=== PATIENT | male | born 1960 | race Caucasian/White ===

== ENCOUNTER 2023-10-09 21:32 | Inpatient (IN) | payer MEDICARE ==
[~2023-10-09] VITALS: Ht 182.9 cm; Wt 73.9 kg
[2023-10-09 22:18] VITALS: BP 125/93; TEMP 98.2; O2SAT 100
[2023-10-09] MEDS ORDERED: MAG HYDROX/AL HYDROX/SIMETH 30 ML UDC PO PRN (22:30)
[2023-10-09] MEDS ORDERED: clonazePAM 0.5 MG TABLET PO PRN (22:30)
[2023-10-09] MEDS ORDERED: MAGNESIUM HYDROXIDE 30 ML UDC PO PRN (22:30)
[2023-10-09] MEDS ORDERED: ACETAMINOPHEN 325 MG TABLET PO PRN (22:30)
[2023-10-09] MEDS ORDERED: ESCI20TA PO (22:32)
[2023-10-09] MEDS ORDERED: QUET200T PO (22:33)
[2023-10-09] MEDS: BLOOD SUGAR DIAGNOSTIC 1 EACH STRIP IN ONE (22:59)
[2023-10-10 07:47] LABS: BASOPHILS # (AUTO) 0.1 K/uL (0.0-0.2); BASOPHILS % (AUTO) 0.8 % (0.0-2.0); EOSINOPHILS # (AUTO) 0.2 K/uL (0.0-0.7); EOSINOPHILS % (AUTO) 2.2 % (0.0-6.0); HEMATOCRIT 44 % (39-51); LYMPHOCYTES # (AUTO) 1.8 K/uL (0.8-4.8); LYMPHOCYTES % (AUTO) 25.8 % (20.0-44.0); MEAN CORPUSCULAR HEMOGLOBIN 33 PG (26.0-33.0); MEAN CORPUSCULAR HGB CONC 34 g/dl (31.0-36.0); MEAN CORPUSCULAR VOLUME 97 fL (80-96); MONOCYTES # (AUTO) 0.8 K/uL (0.1-1.30); MONOCYTES % (AUTO) 11.2 % (2.0-12.0); NEUTROPHILS # (AUTO) 4.2 K/uL (1.8-8.9); PLATELET COUNT (AUTO) 251 K/uL (150-450); RED BLOOD CELL COUNT(AUTO) 4.57 MIL/uL (4.5-6.0); RED CELL DISTRIBUTION WIDTH 13.8 % (11.5-15.0)
[2023-10-10 08:00] VITALS: BP 107/75; TEMP 98.1; O2SAT 100
[2023-10-10] MEDS: ENSURE ENLIVE CHOC 237 ML CAN PO SCH (08:00)
[2023-10-10] MEDS: FLUVOXAMINE MALEATE 50 MG TABLET PO SCH (08:00)
[2023-10-10 08:03] LABS: CALCIUM, SERUM 9.2 mg/dL (8.5-10.1); POTASSIUM 3.4 mmol/L (3.5-5.1)
[2023-10-10] MEDS: ESCITALOPRAM OXALATE (10 MG) 10 MG TABLET PO SCH (08:43)
[2023-10-10] MEDS: POTASSIUM CHLORIDE 20 MEQ TAB.PRT.SR PO ONE (09:30)
[2023-10-10 16:00] VITALS: BP 103/83; TEMP 97.8; O2SAT 99
[2023-10-10 20:00] VITALS: BP 128/91; TEMP 97.6; O2SAT 99
[2023-10-11 08:00] VITALS: BP 110/82; TEMP 98.5; O2SAT 100
[2023-10-11 16:00] VITALS: BP 96/81; TEMP 98; O2SAT 98
[2023-10-11 20:00] VITALS: BP 127/96; TEMP 98.5; O2SAT 98
[2023-10-11] MEDS: QUETIAPINE FUMARATE 100 MG TABLET PO SCH (21:49)
[2023-10-12 08:00] VITALS: BP 123/92; TEMP 97.7; O2SAT 100
[2023-10-12 16:00] VITALS: BP 112/80; TEMP 98.2; O2SAT 100
[2023-10-12 20:19] VITALS: BP 102/79; TEMP 98.2; O2SAT 100
[2023-10-12] MEDS: TEMAZEPAM 7.5 MG CAPSULE PO PRN (21:33)
[2023-10-13 08:00] VITALS: BP 100/80; TEMP 98.6; O2SAT 98
[2023-10-13 16:00] VITALS: BP 101/84; TEMP 97.9; O2SAT 98
[2023-10-13 20:29] VITALS: BP 110/75; TEMP 98.6; O2SAT 97
[2023-10-14 08:00] VITALS: BP 101/72; TEMP 98; O2SAT 96
[2023-10-14 16:06] VITALS: BP 106/64; TEMP 97.9; O2SAT 99
[2023-10-14 20:19] VITALS: BP 106/67; TEMP 97.9; O2SAT 100
[2023-10-15 08:00] VITALS: BP 109/65; TEMP 97.9; O2SAT 97
[2023-10-15 16:00] VITALS: BP 110/75; TEMP 98.1; O2SAT 98
[2023-10-15 20:22] VITALS: BP 117/84; TEMP 98.3; O2SAT 100
[2023-10-16 06:56] LABS: BASOPHILS % (AUTO) 0.5 % (0.0-2.0); EOSINOPHILS # (AUTO) 0.2 K/uL (0.0-0.7); EOSINOPHILS % (AUTO) 3.3 % (0.0-6.0); HEMATOCRIT 38 % (39-51); HEMOGLOBIN 13.3 g/dL (13.5-17.5); LYMPHOCYTES # (AUTO) 2.3 K/uL (0.8-4.8); LYMPHOCYTES % (AUTO) 36.2 % (20.0-44.0); MEAN CORPUSCULAR HEMOGLOBIN 33 PG (26.0-33.0); MEAN CORPUSCULAR HGB CONC 35 g/dl (31.0-36.0); MEAN CORPUSCULAR VOLUME 95 fL (80-96); MONOCYTES # (AUTO) 0.9 K/uL (0.1-1.30); MONOCYTES % (AUTO) 14.2 % (2.0-12.0); NEUTROPHILS # (AUTO) 2.9 K/uL (1.8-8.9); NEUTROPHILS % (AUTO) 45.8 % (43.0-81.0); PLATELET COUNT (AUTO) 177 K/uL (150-450); RED BLOOD CELL COUNT(AUTO) 4.04 MIL/uL (4.5-6.0); RED CELL DISTRIBUTION WIDTH 13.7 % (11.5-15.0); WHITE BLOOD COUNT (AUTO) 6.4 K/uL (4.3-11.0)
[2023-10-16 07:20] LABS: CALCIUM, SERUM 8.9 mg/dL (8.5-10.1); MAGNESIUM 1.8 mg/dL (1.8-2.4); PHOSPHORUS 2.9 mg/dL (2.5-4.9); POTASSIUM 3.2 mmol/L (3.5-5.1)
[2023-10-16 08:00] VITALS: BP 121/82; TEMP 98.7; O2SAT 98
[2023-10-16] MEDS: POTASSIUM CHLORIDE 10 MEQ TABLET.SA PO ONE (10:14)
[2023-10-16 16:31] VITALS: BP 157/89; TEMP 98; O2SAT 98
[2023-10-16 20:00] VITALS: BP 109/80; TEMP 98.1; O2SAT 96
[2023-10-17 08:00] VITALS: BP 106/75; TEMP 97.9; O2SAT 96
[2023-10-17 08:14] LABS: CALCIUM, SERUM 9.1 mg/dL (8.5-10.1); CREATININE 0.9 mg/dL (0.6-1.3); POTASSIUM 3.8 mmol/L (3.5-5.1)
[2023-10-17 16:00] VITALS: BP 110/61; TEMP 97.8; O2SAT 96
[2023-10-17] MEDS: HALOPERIDOL LACTATE INJ 5 MG/ML VIAL IM PRN (16:38)
[2023-10-17] MEDS: QUETIAPINE FUMARATE 100 MG TABLET PO SCH (16:38)
[2023-10-17 20:00] VITALS: BP 110/78; TEMP 98.4; O2SAT 100
[2023-10-17] MEDS: BENZTROPINE MESYLATE (1 MG) 1 MG TABLET PO SCH (21:12)
[2023-10-18 08:40] VITALS: BP 129/83; TEMP 98; O2SAT 96
[2023-10-18] MEDS: ATORVASTATIN 40 MG TABLET PO SCH (12:02)
[2023-10-18 16:21] VITALS: BP 109/63; TEMP 98; O2SAT 96
[2023-10-18 20:00] VITALS: BP 97/65; TEMP 99.1; O2SAT 96
[2023-10-19 08:00] VITALS: BP 101/60; TEMP 97.8; O2SAT 100
[2023-10-19 16:00] VITALS: BP 102/70; TEMP 98; O2SAT 98
[2023-10-19 21:18] VITALS: BP 99/64; TEMP 98; O2SAT 94
[2023-10-20 08:00] VITALS: BP 106/70; TEMP 97.9; O2SAT 97
[2023-10-20 16:00] VITALS: BP 100/67; TEMP 98.1; O2SAT 98
[2023-10-20 20:22] VITALS: BP 103/73; TEMP 98.1; O2SAT 95
[2023-10-21 08:00] VITALS: BP 104/62; TEMP 97.8; O2SAT 94
[2023-10-21 15:59] VITALS: BP 93/62; TEMP 98.8; O2SAT 96
[2023-10-21 20:50] VITALS: BP 104/81; TEMP 98.1; O2SAT 100
[2023-10-22 08:00] VITALS: BP 100/72; TEMP 98.8; O2SAT 97
[2023-10-22 16:00] VITALS: BP 104/67; TEMP 97.9; O2SAT 96
[2023-10-22 20:40] VITALS: BP 100/76; TEMP 98.3; O2SAT 97
[2023-10-23 08:00] VITALS: BP 93/67; TEMP 97.7; O2SAT 100
[2023-10-23] MEDS: HALOPERIDOL DECANOATE IM 100 MG/ML AMPUL IM ONE (08:38)
[2023-10-23] MEDS: diphenhydrAMINE HCL 50 MG/ML VIAL IM ONE (08:38)
[2023-10-23 16:00] VITALS: BP 99/72; TEMP 98.7; O2SAT 95
[2023-10-23 20:00] VITALS: BP 120/89; TEMP 98.1; O2SAT 99
[2023-10-24 08:00] VITALS: BP 101/64; TEMP 97.9; O2SAT 98
[2023-10-24 16:00] VITALS: BP 114/87; TEMP 97.9; O2SAT 97
[2023-10-24 20:00] VITALS: BP 99/67; TEMP 98.3; O2SAT 95
[2023-10-25 08:00] VITALS: BP 122/78; TEMP 97.7; O2SAT 98
[2023-10-25 16:00] VITALS: BP 109/75; TEMP 97.7; O2SAT 93
[2023-10-25 20:00] VITALS: BP 101/66; TEMP 98.3; O2SAT 97
[2023-10-26 08:00] VITALS: BP 115/77; TEMP 97.9; O2SAT 96
[2023-10-26 16:00] VITALS: BP 100/74; TEMP 98.1; O2SAT 96
[2023-10-26 20:19] VITALS: BP 121/66; TEMP 98.2; O2SAT 96
[2023-10-27 08:00] VITALS: BP 117/74; TEMP 98.6; O2SAT 98
[2023-10-27 08:20] LABS: BASOPHILS % (AUTO) 0.6 % (0.0-2.0); EOSINOPHILS # (AUTO) 0.2 K/uL (0.0-0.7); EOSINOPHILS % (AUTO) 2.9 % (0.0-6.0); HEMATOCRIT 34 % (39-51); HEMOGLOBIN 11.6 g/dL (13.5-17.5); LYMPHOCYTES # (AUTO) 2.3 K/uL (0.8-4.8); LYMPHOCYTES % (AUTO) 36.8 % (20.0-44.0); MEAN CORPUSCULAR HEMOGLOBIN 33 PG (26.0-33.0); MEAN CORPUSCULAR HGB CONC 34 g/dl (31.0-36.0); MEAN CORPUSCULAR VOLUME 97 fL (80-96); MONOCYTES # (AUTO) 0.7 K/uL (0.1-1.30); NEUTROPHILS % (AUTO) 48.7 % (43.0-81.0); PLATELET COUNT (AUTO) 195 K/uL (150-450); RED BLOOD CELL COUNT(AUTO) 3.53 MIL/uL (4.5-6.0); RED CELL DISTRIBUTION WIDTH 14.2 % (11.5-15.0); WHITE BLOOD COUNT (AUTO) 6.2 K/uL (4.3-11.0)
[2023-10-27 08:25] LABS: ALBUMIN 2.3 g/dL (3.4-5.0); BILIRUBIN,TOTAL 0.3 mg/dL (0.2-1.0); CALCIUM, SERUM 9.1 mg/dL (8.5-10.1); CREATININE 0.9 mg/dL (0.6-1.3); POTASSIUM 4.1 mmol/L (3.5-5.1); TOTAL PROTEIN, SERUM 5.6 g/dL (6.4-8.2)
[2023-10-27 11:34] LABS: ALBUMIN 2.3 g/dL (3.4-5.0); BILIRUBIN,DIRECT 0.1 mg/dL (0.0-0.2); BILIRUBIN,TOTAL 0.2 mg/dL (0.2-1.0); TOTAL PROTEIN, SERUM 5.7 g/dL (6.4-8.2)
[2023-10-27 16:00] VITALS: BP 105/71; TEMP 98.7; O2SAT 97
[2023-10-27 20:40] VITALS: BP 96/63; TEMP 98.8; O2SAT 96
[2023-10-28 08:00] VITALS: BP 106/70; TEMP 97.8; O2SAT 97
== END 2023-10-28 11:30 | disposition home or self-care (01) | DRG 885 ==
LOC: GPS 21:32
PROVIDERS: ADMIT Psychiatry & Neurology Psychiatry; ATTEND Internal Medicine
DX: F33.2 Major depressive disorder, recurrent severe without psychotic features (principal); F23 Brief psychotic disorder; F41.9 Anxiety disorder, unspecified; E87.6 Hypokalemia; E78.5 Hyperlipidemia, unspecified; D64.9 Anemia, unspecified; F42.9 Obsessive-compulsive disorder, unspecified; Z91.81 History of falling; Z73.6 Limitation of activities due to disability; M62.81 Muscle weakness (generalized); Z79.899 Other long term (current) drug therapy
CPT/HCPCS: 36415; 80048-TC; 80053-TC; 80061-TC; 80076-TC; 82962-TC; 83735-TC; 84100-TC; 85025-TC; 87081-TC; 97112-TC; 97116-TC; 97530-TC; J1200; J1630; J1631